=== PATIENT | male | born 1975 | race Native Hawaiian/Other Pacific Islander ===

== ENCOUNTER 2019-11-01 12:36 | Inpatient (IN) | payer OTHER ==
[~2019-11-01] VITALS: Ht 175.3 cm; Wt 97.5 kg
[2019-11-01 12:36] VITALS: BP 129/81; TEMP 103.2
[2019-11-01 13:00] LABS: PLATELET COUNT 269 K/uL (142-355)
[2019-11-01 13:07] LABS: POTASSIUM 4.3 mmol/L (3.6-5.2)
[2019-11-01 13:30] VITALS: BP 129/77
[2019-11-01 14:30] VITALS: BP 131/87
[2019-11-01 18:16] VITALS: BP 126/65; TEMP 99.1; Ht 175.3 cm; Wt 97.5 kg
[2019-11-01 20:00] VITALS: BP 133/85; TEMP 101.2
--- NOTE | 2019-11-01 22:23 | NUR ---
11/01/20192129 DRESSED OUT WITH PPE OBTAINED V/S TEMP 100.2 C/O OF HEADACHE.PM MEDICATIONS GIVEN.PT IS COUGHING NONPRODUTIVE ENCOURAGED TO USE IS.IV FLUIDS INFUSING WITHOUT DIFFICULTY.SNACK PROVIDED AT [place].PT STATES HE HAS VOIDED SINCE 7 PM X 2 VOIDS.CALL LIGHT WITHIN REACH.
[2019-11-02] VITALS: BP 125/79; TEMP 99.2
[2019-11-02 04:00] VITALS: BP 126/78; TEMP 99.2
[2019-11-02 05:34] LABS: PLATELET COUNT 236 K/uL (142-355)
[2019-11-02 08:00] VITALS: BP 126/82; TEMP 99.1
[2019-11-02 12:00] VITALS: BP 136/75; TEMP 100
[2019-11-02] MEDS ORDERED: CETI10TA PO (13:18)
[2019-11-02 16:00] VITALS: BP 126/75; TEMP 98.9
[2019-11-03] VITALS: BP 147/85; TEMP 99.1
[2019-11-03 04:00] VITALS: BP 149/87; TEMP 99.7
[2019-11-03 05:37] LABS: PLATELET COUNT 262 K/uL (142-355)
[2019-11-03 05:56] LABS: POTASSIUM 3.9 mmol/L (3.6-5.2)
[2019-11-03 08:00] VITALS: TEMP 99.2
[2019-11-03 12:00] VITALS: BP 137/32; TEMP 98.9
[2019-11-03] MEDS ORDERED: AZIT250T3 PO (12:22)
[2019-11-03] MEDS ORDERED: MUCINEX600 MG PO (12:24)
[2019-11-03] MEDS ORDERED: HYDR200T3 PO (12:24)
[2019-11-03] MEDS ORDERED: CEFDINIR300 MG PO (12:24)
== END 2019-11-03 13:30 | disposition home or self-care (01) | DRG 871 ==
LOC: ED 12:36 → MED/SURG 13:47
PROVIDERS: Internal Medicine Endocrinology, Diabetes & Metabolism; ADMIT Family Medicine
DX: A41.89 Other specified sepsis (principal); J18.8 Other pneumonia, unspecified organism; N17.9 Acute kidney failure, unspecified; E87.1 Hypo-osmolality and hyponatremia; B97.29 Other coronavirus as the cause of diseases classified elsewhere; K21.9 Gastro-esophageal reflux disease without esophagitis; J39.8 Other specified diseases of upper respiratory tract; R79.89 Other specified abnormal findings of blood chemistry
CPT/HCPCS: 36415; 80053; 81000; 85027; 87502; 93005; 94760; 96360; 99284; J0456; J0696; J1644; J2405

== ENCOUNTER 2022-02-12 08:12 | Outpatient (CLI) | payer OTHER ==
[~2022-02-12] VITALS: Ht 175.3 cm; Wt 108.4 kg
[~2022-02-12 08:12] MED LIST: AZIT250T3 PO; CEFDINIR300 MG PO; CETI10TA PO; HYDR200T3 PO; MUCINEX600 MG PO
== END 2022-02-12 19:02 | disposition home or self-care (01) ==
LOC: NM 08:12
PROVIDERS: ATTEND Nurse Practitioner
DX: I48.91 Unspecified atrial fibrillation (principal); I10 Essential (primary) hypertension; I42.9 Cardiomyopathy, unspecified
CPT/HCPCS: A9500; J2785